=== PATIENT | female | born 1975 | race Asian ===

== ENCOUNTER 2018-06-08 13:33 | Emergency (ER) | payer OTHER ==
[2018-06-08] MEDS ORDERED: ONDANSETRON 4 MG/2 ML VIAL ONE ×2 (14:34→16:12)
[2018-06-08] MEDS ORDERED: NA CHLORIDE 0.9% 500 ML ONE (14:34)
[2018-06-08] MEDS ORDERED: FENTANYL CITR 100 MCG/2 ML ONE (14:34)
[2018-06-08 14:42] LABS: Protime INR 1.13
[2018-06-08 15:00] LABS: Absolute Lymphocytes (CBC) 2.3 K/uL (0.7-4.9); Absolute Monocytes 0.5 K/uL (0.1-1.3); Absolute Neutrophil 5.6 K/uL (1.8-8.0); Basophils % 0.8 % (0-1.3); Eosinophils % 1.3 % (0-4.4); Hematocrit 28.1 % (36.0-45.0); Lymphocytes % 26.7 % (15.3-44.8); MPV 9.2 fL (7.6-11.3); Monocytes % 5.4 % (3.3-12.3)
[2018-06-08 15:03] LABS: ALT/SGPT 18 U/L (12-78); AST/SGOT 12 U/L (15-37); Albumin 3.9 g/dL (3.4-5.0); Alkaline Phosphatase 56 U/L (45-117); BUN Blood Urea Nitrogen 10 mg/dL (7-18); Bicarbonate 24 mmol/L (21-32); Bilirubin Direct < 0.1 mg/dL (0-0.2); Bilirubin Total 0.3 mg/dL (0.2-1.0); Glucose Level 105 mg/dL (74-106); NT PRO-BNP 22 pg/mL (<125); Potassium 3.3 mmol/L (3.5-5.1); Protein, Total 8.5 g/dL (6.4-8.2); Sodium Level 139 mmol/L (136-145); Troponin (Emerg Dept Use Only) < 0.02 ng/mL (0.0-0.045)
--- NOTE | 2018-06-08 15:03 | RAD REPORT ---
EXAM DESCRIPTION: RAD - Chest Single View - 06/08/2018 2:53 pm CLINICAL HISTORY: COUGH Chest pain. COMPARISON: No comparisons FINDINGS: Portable technique limits examination quality. The lungs are grossly clear. The heart is upper limit of normal in size. No displaced fractures. IMPRESSION: No acute intrathoracic process suspected.
[2018-06-08] MEDS ORDERED: NA CHLORIDE 0.9% 0 ML IV ONE (15:20)
[2018-06-08] MEDS ORDERED: DIPHENHYDRAMINE 50 MG/ML VIAL ONE (15:20)
[2018-06-08] MEDS ORDERED: KETOROLAC 30 MG/ML INJ ONE (15:20)
[2018-06-08] MEDS ORDERED: NS KCL 20MEQ 1,000 ML IV ONE (15:20)
[2018-06-08] MEDS ORDERED: METOCLOPRAMIDE 10 MG/2mL INJ ONE (15:20)
[2018-06-08] MEDS ORDERED: NA CHLORIDE 0.9% 100 ML IV ONE (15:21)
[2018-06-08 15:35] LABS: Platelet Estimate ADEQ; Urine White Blood Cell Casts OK
--- NOTE | 2018-06-08 15:35 | RAD REPORT ---
EXAM DESCRIPTION: CT - Head angio - 06/08/2018 3:30 pm CLINICAL HISTORY: HEADACHE Neck pain COMPARISON: Head Brain Wo Cont dated 06/08/2018 TECHNIQUE: CT angiography of the head was performed with MIPs. All CT scans are performed using dose optimization technique as appropriate and may include automated exposure control or mA/KV adjustment according to patient size. FINDINGS: No evidence of aneurysm is detected. No flow-limiting stenosis or vascular malformation id entified. Antegrade flow is seen in the vertebral arteries. The vertebral arteries are codominant. The visualized dural venous sinuses are patent. IMPRESSION: No significant flow abnormality is detected.
--- NOTE | 2018-06-08 15:35 | RAD REPORT ---
EXAM DESCRIPTION: CT - Head Brain Wo Cont - 06/08/2018 3:28 pm CLINICAL HISTORY: HEADACHE COMPARISON: Head angio dated 06/08/2018 TECHNIQUE: All CT scans are performed using dose optimization technique as appropriate and may inclu de automated exposure control or mA/KV adjustment according to patient size. FINDINGS: No intracranial hemorrhage, hydrocephalus or extra-axial fluid collection.No areas of brai n edema or evidence of midline shift. The paranasal sinuses and mastoids are clear. The calvarium is intact. IMPRESSION: No acute intracranial abnormality.
[2018-06-08 15:36] LABS: Anisocytosis 2+; Blood Morphology Comment NOTED (NOT SEEN); Hypochromasia 3+; Polychromasia 1+
[2018-06-08 16:25] LABS: Barbiturates NEGATIVE (NEGATIVE); Benzodiazepines NEGATIVE (NEGATIVE); Cocaine NEGATIVE (NEGATIVE); METHAMPHETAM NEGATIVE (NEGATIVE); Methadone NEGATIVE (NEGATIVE); Opiates NEGATIVE (NEGATIVE); Phencyclidine NEGATIVE (NEGATIVE); THC Cannibis NEGATIVE (NEGATIVE)
--- NOTE | 2018-06-08 16:44 | ER ---
Nurse's Notes [facility] Name: Susana Patiño Age: 42 yrs Sex: Female : 1975 Arrival Date: 06/08/2018 Time: 13:34 Bed 16 Private MD: None, None Diagnosis: Headache;Anemia, unspecified;Hypokalemia;Vomiting Presentation: 06/08 13:41 Presenting complaint: Patient states: left neck, head pain, hx migraines, c/o francisco arm sv numbness started around 1030. Transition of care: patient was not received from another setting of care. Onset of symptoms was June 08, 2018 at 10:30. Care prior to arrival: None. 13:41 Method Of Arrival: Wheelchair sv 13:41 Acuity: CHICHI 2 sv 14:00 Risk Assessment: Do you want to hurt yourself or someone else? Patient reports no ph desire to harm self or others. Initial Sepsis Screen: Does the patient meet any 2 criteria? No. Patient's initial sepsis screen is negative. Does the patient have a suspected source of infection? No. Patient's initial sepsis screen is negative. Triage Assessment: 13:41 General: Appears in no apparent distress. uncomfortable, Behavior is cooperative. Pain: sv Complains of pain in left frontal area, left side of the back of head, left temporal area, left occipital area, left ear and left base of the skull and left neck. Neuro: Level of Consciousness is awake, alert, obeys commands, Oriented to person, place, time, situation, Lard Maker are equal bilaterally Moves all extremities. Full function Gait is steady, Speech is normal, Facial symmetry appears normal, Reports headache in left parietal area, frontal area, occipital area, numbness in right arm and left arm. Respiratory: Respiratory effort is even, unlabored, Respiratory pattern is regular, symmetrical. Historical: - Allergies: 13:43 No Known Allergies; sv - Immunization history:: Adult Immunizations unknown. - Family history:: not pertinent. - Social history:: Smoking status: Patient/guardian denies using tobacco. - Ebola Screening: : No symptoms or risks identified at this time. Screenin:59 Abuse screen: Denies threats or abuse. Denies injuries from another. Nutritional ph screening: No deficits noted. Tuberculosis screening: No symptoms or risk factors identified. Fall Risk None identified. Assessment: 14:00 General: Appears in no apparent distress. uncomfortable, Behavior is anxious, quiet, ph Denies fever, feeling ill. Pain: Complains of pain in left rastafarian Pain radiates to left sternocleidomastoid. Neuro: Level of Consciousness is awake, obeys commands, Oriented to person, place, time, situation, Lard Maker are weak bilaterally Moves all extremities. Full function Speech is normal, Facial symmetry appears normal, Facial symmetry: tongue is midline, Pupils are PERRLA, Reports blurred vision dizziness, headache in left frontal area, paresthesias in left arm and right arm photophobia. Cardiovascular: Denies chest pain, shortness of breath, Capillary refill < 3 seconds in bilateral fingers Patient's skin is warm and dry. Respiratory: Airway is patent Respiratory effort is even, unlabored, Respiratory pattern is regular, symmetrical. GI: Reports nausea, vomiting, Patient currently denies abdominal pain. Derm: Skin is intact, is healthy with good turgor, Skin is pink, warm \T\ dry. Musculoskeletal: Circulation, motion, and sensation intact. Range of motion: intact in all extremities. 15:30 Reassessment: Patient appears in no apparent distress at this time. Patient and/or ph family updated on plan of care and expected duration. Pain level reassessed. Patient is alert, oriented x 3, equal unlabored respirations, skin warm/dry/pink. Pt continues to c/o nausea and headache, ERP notified, see MAR. 16:30 Reassessment: Patient appears in no apparent distress at this time. Patient and/or ph family updated on plan of care and expected duration. Pain level reassessed. Patient is alert, oriented x 3, equal unlabored respirations, skin warm/dry/pink. 18:00 Reassessment: Patient appears in no apparent distress at this time. Patient and/or ph family updated on plan of care and expected duration. Pain level reassessed. Pt asleep w/ equal, unlabored respirations, awakens easily, reports that pain has decreased to 6/10 and denies nausea, pt instructed to follow up w/ neurologist and d/c home w/ prescriptions. Vital Signs: 13:43 BP 125 / 96; Pulse 77; Resp 20; Temp 97.7; Pulse Ox 100% ; sv 15:15 BP 118 / 87; Pulse 84; Resp 18; Pulse Ox 98% on R/A; ph 16:30 BP 112 / 80; Pulse 88; Resp 17; Temp 97.6(O); Pulse Ox 100% on R/A; Pain 8/10; mh5 17:30 BP 124 / 78; Pulse 71; Resp 18; Temp 97.9; Pulse Ox 99% on R/A; ph ED Course: 13:34 Patient arrived in ED. sb2 13:35 None, None is Private Physician. sb2 13:42 Triage completed. sv 13:42 Arm band placed on Patient placed in an exam room, on a stretcher. sv 13:44 Ashley Turcios, RN is Primary Nurse. ph 14:00 Patient has correct armband on for positive identification. Placed in gown. Bed in low ph position. Call light in reach. Side rails up X 1. Pulse ox on. NIBP on. Door closed. Noise minimized. Lights dimmed. Warm blanket given. 14:02 David Gilbert MD is Attending Physician. sinan 14:39 Radiology exam delayed due to lab results not completed at this time. (BUN/Creatinine). vr 14:53 XRAY Chest (1 view) In Process Unspecified. EDMS 15:[address] vm2 15:30 CT Head Brain wo Cont In Process Unspecified. EDMS 15:33 CT Head Angio In Process Unspecified. EDMS 16:21 Urine collected: clean catch specimen, cloudy. mh5 16:22 Urine Culture Sent. mh5 16:22 UDS Sent. mh5 16:24 Pulse ox on. NIBP on. mh5 16:43 Nando Anderson MD is Referral Physician. sinan 18:00 No provider procedures requiring assistance completed. IV discontinued, intact, ph bleeding controlled, No redness/swelling at site. Pressure dressing applied. Administered Medications: 14:36 Drug: NS 0.9% 500 ml Route: IV; Rate: bolus; Site: left antecubital; ph 15:30 Follow up: Response: No adverse reaction; IV Status: Completed infusion ph 14:36 Drug: Zofran 4 mg Route: IVP; Site: left antecubital; ph 15:30 Follow up: Response: No adverse reaction; Nausea unchanged ph 14:37 Drug: fentaNYL (PF) 50 mcg Route: IVP; Site: left antecubital; ph 15:20 Follow up: Response: No adverse reaction; Pain is unchanged, physician notified ph 15:07 Not Given (Duplicate Order): NS 0.9% 1000 ml IV at 125 ml/hr continuous sinan 15:45 Drug: TORadol 30 mg Route: IVP; Site: left antecubital; ph 16:30 Follow up: Response: No adverse reaction ph 16:07 Drug: NS 0.9% with KCl 20 mEq/L 1000 ml Route: IV; Rate: ml/hr; Site: left antecubital; ph 18:10 Follow up: Response: No adverse reaction; IV Status: Completed infusion ph 16:07 Drug: Benadryl 25 mg Route: IVP; Site: left antecubital; ph 16:30 Follow up: Response: No adverse reaction ph 16:07 Drug: Reglan 10 mg Route: IVP; Site: left antecubital; ph 19:25 Follow up: Response: No adverse reaction ph 16:07 Drug: Zofran 4 mg Route: IVP; Site: left antecubital; ph 16:30 Follow up: Response: No adverse reaction ph Outcome: 16:43 Discharge ordered by . sinan 18:15 Patient left the ED. hb 18:15 Discharged to home ambulatory, with family. ph 18:15 Condition: good 18:15 Discharge instructions given to patient, family, Instructed on discharge instructions, follow up and referral plans. medication usage, Demonstrated understanding of instructions, follow-up care, medications, Prescriptions given X 2. Signatures: Dispatcher [employer] Manasa Chou RN RN sv Anderson, Corey, MD MD cha Davis, Victoria vr Hall, Patricia, RN RN ph Baxter, Heather, RN RN hb Martinez, Maria Alysa Zuleta Sheri sb2
--- NOTE | 2018-06-08 16:44 | EDPHYS ---
Physician Documentation [facility] Name: Susana Patiño Age: 42 yrs Sex: Female : 1975 Arrival Date: 06/08/2018 Time: 13:34 Bed 16 Private MD: None, None ED Physician David Gilbert HPI: 06/08 14:17 This 42 yrs old Female presents to ER via Wheelchair with complaints of Neck sinan Pain, <24hrs Old, Headache, Numbness Of Arm, Memory Loss. 14:17 The patient or guardian complains of pain. sinan Historical: - Allergies: 13:43 No Known Allergies; sv - Immunization history:: Adult Immunizations unknown. - Family history:: not pertinent. - Social history:: Smoking status: Patient/guardian denies using tobacco. - Ebola Screening: : No symptoms or risks identified at this time. ROS: 14:18 Constitutional: Negative for fever, chills, and weight loss, Eyes: Negative for injury, sinan pain, redness, and discharge, ENT: Negative for injury, pain, and discharge, Neck: Negative for injury, pain, and swelling, Cardiovascular: Negative for chest pain, palpitations, and edema, Respiratory: Negative for shortness of breath, cough, wheezing, and pleuritic chest pain, Abdomen/GI: Negative for abdominal pain, nausea, vomiting, diarrhea, and constipation, Back: Negative for injury and pain, : Negative for injury, bleeding, discharge, and swelling, Skin: Negative for injury, rash, and discoloration, Neuro: Negative for headache, weakness, numbness, tingling, and seizure, Psych: Negative for depression, anxiety, suicide ideation, homicidal ideation, and hallucinations, Allergy/Immunology: Negative for hives, rash, and allergies, Endocrine: Negative for neck swelling, polydipsia, polyuria, polyphagia, and marked weight changes. 14:18 MS/extremity: Positive for of the left arm. Exam: 14:18 Constitutional: This is a well developed, well nourished patient who is awake, alert, sinan and in no acute distress. Head/Face: Normocephalic, atraumatic. Eyes: Pupils equal round and reactive to light, extra-ocular motions intact. Lids and lashes normal. Conjunctiva and sclera are non-icteric and not injected. Cornea within normal limits. Periorbital areas with no swelling, redness, or edema. ENT: Nares patent. No nasal discharge, no septal abnormalities noted. Tympanic membranes are normal and external auditory canals are clear. Oropharynx with no redness, swelling, or masses, exudates, or evidence of obstruction, uvula midline. Mucous membranes moist. Neck: Trachea midline, no thyromegaly or masses palpated, and no cervical lymphadenopathy. Supple, full range of motion without nuchal rigidity, or vertebral point tenderness. No Meningismus. Chest/axilla: Normal chest wall appearance and motion. Nontender with no deformity. No lesions are appreciated. Cardiovascular: Regular rate and rhythm with a normal S1 and S2. No gallops, murmurs, or rubs. Normal PMI, no JVD. No pulse deficits. Respiratory: Lungs have equal breath sounds bilaterally, clear to auscultation and percussion. No rales, rhonchi or wheezes noted. No increased work of breathing, no retractions or nasal flaring. Abdomen/GI: Soft, non-tender, with normal bowel sounds. No distension or tympany. No guarding or rebound. No evidence of tenderness throughout. Back: No spinal tenderness. No costovertebral tenderness. Full range of motion. Female : Normal external genitalia. Skin: Warm, dry with normal turgor. Normal color with no rashes, no lesions, and no evidence of cellulitis. MS/ Extremity: Pulses equal, no cyanosis. Neurovascular intact. Full, normal range of motion. Psych: Awake, alert, with orientation to person, place and time. Behavior, mood, and affect are within normal limits. 14:18 Neuro: Orientation: is normal, appropriate for stated age, no acute changes, Mentation: is normal, appropriate for stated age, no acute changes, Memory: is normal, appropriate for stated age, no acute changes, Cranial nerves: grossly normal, is grossly normal based on the patient's age, no acute changes, Cerebellar function: is grossly normal, Motor: is normal, is grossly normal based on the patient's age, Sensation: no obvious gross deficits, appropriate no acute changes, Gait: not tested. Babinski testing is normal, seizure activity, is not displayed by the patient. 15:43 Neck: ROM/movement: is normal, no acute changes, Meningeal signs: are not present, sinan Kernig's sign is negative, Brudzinski's sign is negative. Vital Signs: 13:43 BP 125 / 96; Pulse 77; Resp 20; Temp 97.7; Pulse Ox 100% ; sv 15:15 BP 118 / 87; Pulse 84; Resp 18; Pulse Ox 98% on R/A; ph 16:30 BP 112 / 80; Pulse 88; Resp 17; Temp 97.6(O); Pulse Ox 100% on R/A; Pain 8/10; mh5 17:30 BP 124 / 78; Pulse 71; Resp 18; Temp 97.9; Pulse Ox 99% on R/A; ph MDM: 14:02 Patient medically screened. [facility] 14:20 Data reviewed: vital signs, nurses notes, lab test result(s), EKG, radiologic studies, [facility] CT scan, plain films. 06/08 14:16 Order name: Basic Metabolic Panel; Complete Time: 15:05 [facility] 06/08 14:16 Order name: CBC with Diff [facility] 06/08 14:16 Order name: LFT's; Complete Time: 15:05 [facility] 06/08 14:16 Order name: Magnesium; Complete Time: 15:05 [facility] 06/08 14:16 Order name: NT PRO-BNP; Complete Time: 15:05 [facility] 06/08 14:16 Order name: PT-INR; Complete Time: 15:05 [facility] 06/08 14:16 Order name: Troponin (emerg Dept Use Only); Complete Time: 15:06 [facility] 06/08 14:16 Order name: XRAY Chest (1 view); Complete Time: 15:06 [facility] 06/08 14:16 Order name: UDS; Complete Time: 16:42 [facility] 06/08 14:16 Order name: CT Head Angio; Complete Time: 15:43 [facility] 06/08 14:16 Order name: Urine Culture [facility] 06/08 15:35 Order name: CBC Smear Scan [facility] 06/08 17:17 Order name: Urine Dipstick--Ancillary (enter results) 06/08 17:17 Order name: Urine --Ancillary (enter results) 06/08 14:16 Order name: EKG; Complete Time: 14:18 [facility] 06/08 14:16 Order name: Cardiac monitoring; Complete Time: 16:37 [facility] 06/08 14:16 Order name: EKG - Nurse/Tech; Complete Time: 19:29 [facility] 06/08 14:16 Order name: IV Saline Lock; Complete Time: 16:22 [facility] 06/08 14:16 Order name: Labs collected and sent; Complete Time: 16:22 [facility] 06/08 14:16 Order name: O2 Per Protocol; Complete Time: 16:37 [facility] 06/08 14:16 Order name: CT Head Brain wo Cont; Complete Time: 15:43 [facility] 06/08 14:16 Order name: O2 Sat Monitoring; Complete Time: 16:37 [facility] 06/08 14:16 Order name: Urine Dipstick-Ancillary (obtain specimen); Complete Time: 16:22 [facility] Administered Medications: 14:36 Drug: NS 0.9% 500 ml Route: IV; Rate: bolus; Site: left antecubital; ph 15:30 Follow up: Response: No adverse reaction; IV Status: Completed infusion ph 14:36 Drug: Zofran 4 mg Route: IVP; Site: left antecubital; ph 15:30 Follow up: Response: No adverse reaction; Nausea unchanged ph 14:37 Drug: fentaNYL (PF) 50 mcg Route: IVP; Site: left antecubital; ph 15:20 Follow up: Response: No adverse reaction; Pain is unchanged, physician notified ph 15:07 Not Given (Duplicate Order): NS 0.9% 1000 ml IV at 125 ml/hr continuous sinan 15:45 Drug: TORadol 30 mg Route: IVP; Site: left antecubital; ph 16:30 Follow up: Response: No adverse reaction ph 16:07 Drug: NS 0.9% with KCl 20 mEq/L 1000 ml Route: IV; Rate: ml/hr; Site: left antecubital; ph 18:10 Follow up: Response: No adverse reaction; IV Status: Completed infusion ph 16:07 Drug: Benadryl 25 mg Route: IVP; Site: left antecubital; ph 16:30 Follow up: Response: No adverse reaction ph 16:07 Drug: Reglan 10 mg Route: IVP; Site: left antecubital; ph 19:25 Follow up: Response: No adverse reaction ph 16:07 Drug: Zofran 4 mg Route: IVP; Site: left antecubital; ph 16:30 Follow up: Response: No adverse reaction ph Disposition: 06/08/18 16:43 Discharged to Home. Impression: Headache, Anemia, unspecified, Hypokalemia, Vomiting. - Condition is Stable. - Discharge Instructions: Anemia, Nonspecific, General Headache Without Cause, General Headache Without Cause, [id number], Hypokalemia. - Prescriptions for Fioricet with Codeine 50- 325-40-30 mg Oral capsule - take 1 capsule by ORAL route every 4 hours as needed not to exceed 6 capsules per 24hrs; 24 capsule. Zofran 4 mg Oral Tablet - take 1 tablet by ORAL route every 12 hours As needed; 20 tablet. - Medication Reconciliation Form, Thank You Letter, Antibiotic Education, Prescription Opioid Use, School release form form. - Follow up: Private Physician; When: 2 - 3 days; Reason: Recheck today's complaints, Continuance of care, Re-evaluation by your physician. Follow up: Nando Anderson; When: 2 - 3 days; Reason: Recheck today's complaints, Re-evaluation by your physician. - Problem is new. - Symptoms have improved. Signatures: Dispatcher [employer] Manasa Chou RN RN David Vides MD MD cha Hall, Patricia, RN RN Galina Rhoades RN RN hb Corrections: (The following items were deleted from the chart) 18:15 16:43 06/08/2018 16:43 Discharged to Home. Impression: Headache; Anemia, unspecified; hb Hypokalemia; Vomiting. Condition is Stable. Discharge Instructions: Anemia, Nonspecific, General Headache Without Cause, General Headache Without Cause, [id number], Hypokalemia. Prescriptions for Fioricet with Codeine [id number] mg Oral capsule - take 1 capsule by ORAL route every 4 hours as needed not to exceed 6 capsules per 24hrs; 24 capsule, Zofran 4 mg Oral Tablet - take 1 tablet by ORAL route every 12 hours As needed; 20 tablet. and Forms are Medication Reconciliation Form, Thank You Letter, Antibiotic Education, Prescription Opioid Use. Follow up: Private Physician; When: 2 - 3 days; Reason: Recheck today's complaints, Continuance of care, Re-evaluation by your physician. Follow up: Nando Anderson; When: 2 - 3 days; Reason: Recheck today's complaints, Re-evaluation by your physician. Problem is new. Symptoms have improved. sinan
--- NOTE | 2018-06-08 17:09 | EKG ---
Test Date: 2018-06-08 Test Time: 14:37:18 Machine Carton Marker: ANTON MEASUREMENT RESULTS: Intervals: Rate: 76 PA: 132 QRSD: 80 QT: 426 QTc: 479 [place]: P: 40 PA: 132 QRS: 56 T: 28 INTERPRETIVE STATEMENTS: Normal sinus rhythm Normal ECG No previous ECG available for comparison Electronically Signed On 06-08-18 17:08:08 [employer] by Jonathan Pate
[2018-06-08 17:47] LABS: Urine Blood 2+ (NEG); Urine Glucose NEGATIVE (NEG); Urine Protein NEGATIVE (NEG)
== END 2018-06-08 18:15 | disposition home or self-care (01) ==
LOC: ER 13:33
DX: D64.9 Anemia, unspecified (principal); E87.6 Hypokalemia; R11.10 Vomiting, unspecified
CPT/HCPCS: 36415; 70450; 70496; 71045; 80048; 80076; 80307; 81003; 81025; 83735; 83880; 84484; 85025; 85610; 87086; 87088; 93005; 96361; 96374; 96375; 99284; J2405; J2765; J3010; Q9967